=== PATIENT | male | born 1970 | race Two or more races ===

== ENCOUNTER 2019-06-15 12:15 | Emergency (ER) | payer OTHER ==
[~2019-06-15] VITALS: Ht 170.2 cm; Wt 77.1 kg
[2019-06-15 13:40] VITALS: BP 129/78
[2019-06-15] MEDS ORDERED: TETANUS-DIPTH-ACEL PERTUSSIS 0.5ML SYRG IM ONE (14:30)
== END 2019-06-15 14:52 | disposition home or self-care (01) ==
LOC: EDBD 12:15 → ER 12:15
DX: S91.012A Laceration without foreign body, left ankle, initial encounter (principal); E11.9 Type 2 diabetes mellitus without complications; W26.8XXA Contact with other sharp object(s), not elsewhere classified, initial encounter; Y93.89 Activity, other specified; Y99.8 Other external cause status; Y92.89 Other specified places as the place of occurrence of the external cause
CPT/HCPCS: 12004; 73610; 90471; 90715